=== PATIENT | male | born 1960 | race Caucasian/White ===

== ENCOUNTER 2023-11-09 09:50 | Emergency (ER) | payer OTHER ==
[2023-11-09 09:53] VITALS: BP 139/80; PULSE 80; RESP 16; TEMP 97.9; BMI 22.7
[2023-11-09] MEDS ORDERED: LIDOCAINE 5% TOPICAL PATCH ONE (10:03)
[2023-11-09] MEDS ORDERED: ACETAMINOPHEN 500 MG TABLET (FP) ONE (10:03)
[2023-11-09] MEDS: ACETAMINOPHEN 500 MG TABLET (FP) PO ONE (10:05)
[2023-11-09] MEDS: LIDOCAINE 5% TOPICAL PATCH TP ONE (10:49)
[2023-11-09] MEDS ORDERED: LIDOCAINE PATCH REMOVAL MC ONE (22:00)
== END 2023-11-09 12:41 | disposition home or self-care (01) ==
LOC: FER 09:50
DX: S22.41XA Multiple fractures of ribs, right side, initial encounter for closed fracture (principal); W01.198A Fall on same level from slipping, tripping and stumbling with subsequent striking against other object, initial encounter
CPT/HCPCS: 71250-TC; 99284-25